=== PATIENT | male | born 2000 | race Caucasian/White ===

== ENCOUNTER 2022-06-27 07:54 | Emergency (ER) | payer MEDICAID ==
[~2022-06-27] VITALS: Ht 167.6 cm; Wt 65.0 kg
[2022-06-27 07:56] VITALS: BP 110/59
[2022-06-27] MEDS ORDERED: OXYCODONE HCL/ACETAMINOPHEN 5/325MG TABLET PO ONE (08:30)
[2022-06-27] MEDS ORDERED: DEXAMETHASONE 4MG/ML 1ML VIAL IV ONE (08:30)
[2022-06-27] MEDS ORDERED: CIPHCO LEFT EAR (08:35)
== END 2022-06-27 08:49 | disposition home or self-care (01) ==
LOC: ER 07:54
DX: H60.92 Unspecified otitis externa, left ear (principal)
CPT/HCPCS: 99283